=== PATIENT | female | born 1960 | race African-American/Black ===

== ENCOUNTER 2016-05-22 14:52 | Emergency (ER) | payer MEDICAID, OTHER ==
[~2016-05-22] VITALS: Ht 160 cm; Wt 72.6 kg
[~2016-05-22 14:52] MED LIST: DOCUSATE SODIU100 M2 ORAL; LISINOPRIL-HCT1 EAC2 ORAL; NITROFURANTOIN100 M2 ORAL; NORCO 5-325 TA1 EACH ORAL; OMEPRAZOLE40 M1 ORAL; RANITIDINE HCL150 MG ORAL; ZOFRAN4 MG ORAL
[2016-05-22 15:17] VITALS: BP 108/73
--- NOTE | 2016-05-22 15:26 | Emergency Room Report ---
History of Present Illness General Chief Complaint: Abdominal Pain Source: Patient Present Illness HPI Patient presents with complaints of diffuse abdominal pain Essentially points to bilateral lower abdominal region Reports that ongoing for the past several days Reports of pain last week with sharp today is more dull Denies any fevers or chills she did have a vomiting episode earlier today also reports one episode of diarrhea Patient denies any recent travel denies any trauma Allergies: Coded Allergies: NO KNOWN ALLERGIES (Unverified Allergy, Unknown, 08/02/14) Patient History Past Medical History: see triage record Pertinent Family History: none Reviewed Nursing Documentation: PMH: Agreed, PSxH: Agreed Nursing Documentation-PM Past Medical History: No History, Except For Hx Hypertension: Yes Hx Gastrointestinal Problems: No - s/p CANDY in 2000 Review of Systems All Other Systems: negative except mentioned in HPI Physical Exam Vital Signs Date Time Temp Pulse Resp B/P Pulse Ox O2 Delivery O2 Flow Rate FiO2 05/22/16 15:10 98.1 91 14 108/73 97 Sp02 EP Interpretation: reviewed, normal General Appearance: well appearing, no apparent distress Head: normocephalic, atraumatic Eyes: bilateral eye EOMI, bilateral eye PERRL ENT: hearing grossly normal, normal pharynx, TMs + canals normal, uvula midline Neck: full range of motion, supple, no meningismus, no bony tend Respiratory: lungs clear, normal breath sounds, no rhonchi, no respiratory distress, no retraction, no accessory muscle use Cardiovascular #1: normal peripheral pulses, regular rate, rhythm, no edema, no gallop, no JVD, no murmur Gastrointestinal: normal bowel sounds, soft, no mass, no organomegaly, non- distended, no guarding, no hernia, no pulsatile mass, no rebound, tenderness - Subjectively however no obvious reproducible pain Genitourinary: no CVA tenderness Musculoskeletal: normal inspection Neurologic: oriented x3, responsive, manager intermediate III-XII nml as tested, motor strength/ tone normal, sensory intact Psychiatric: mood/affect normal Skin: normal color, no rash, warm/dry, palpation normal Lymphatic: normal inspection, no adenopathy Medical Decision Making Diagnostic Impression: Primary Impression: Abdominal pain ER Course With the history exam and presentation, multiple differentials considered, including but not limited to appendicitis, gastritis, cholecystitis, diverticulitis Given the patient's discomfort CT imaging was obtained No obvious acute pathology, questionable colitis Patient's blood work is appropriate patient hasn't significantly better throughout her stay at this time stable for further outpatient followup Labs Test 05/22/16 15:10 White Blood Count 8.0 K/UL (4.8-10.8) Red Blood Count 3.28 M/UL (4.20-5.40) Hemoglobin 12.4 G/DL (12.0-16.0) Hematocrit 34.3 % (37.0-47.0) Mean Corpuscular Volume 105 FL (80-99) Mean Corpuscular Hemoglobin 37.9 PG (27.0-31.0) Mean Corpuscular Hemoglobin Concent 36.1 G/DL (32.0-36.0) Red Cell Distribution Width 12.8 % (11.6-14.8) Platelet Count 256 K/UL (150-450) Mean Platelet Volume 7.4 FL (6.5-10.1) Neutrophils (%) (Auto) 66.9 % (45.0-75.0) Lymphocytes (%) (Auto) 24.1 % (20.0-45.0) Monocytes (%) (Auto) 6.3 % (1.0-10.0) Eosinophils (%) (Auto) 1.0 % (0.0-3.0) Basophils (%) (Auto) 1.7 % (0.0-2.0) Urine Color Pale yellow Urine Appearance Clear Urine pH 6 (4.5-8.0) Urine Specific [place] 1.015 (1.005-1.035) Urine Protein Negative (NEGATIVE) Urine Glucose (UA) Negative (NEGATIVE) Urine Ketones Negative (NEGATIVE) Urine Occult Blood 1+ (NEGATIVE) Urine Nitrite Negative (NEGATIVE) Urine Bilirubin Negative (NEGATIVE) Urine Urobilinogen Normal MG/DL (0.0-1.0) Urine Leukocyte Esterase Negative (NEGATIVE) Urine RBC 2-4 /HPF (0 - 2) Urine WBC 0-2 /HPF (0 - 2) Urine Squamous Epithelial Cells Few /LPF (NONE/OCC) Urine Amorphous Sediment Few /LPF (NONE) Urine Bacteria Few /HPF (NONE) Sodium Level 140 mEQ/L (135-145) Potassium Level 3.4 mEQ/L (3.4-4.9) Chloride Level 98 mEQ/L (98-107) Carbon Dioxide Level 24 mEQ/L (20-30) Anion Gap 18 (5-15) Blood Urea Nitrogen 25 mg/dL (7-23) Creatinine 1.1 mg/dL (0.5-0.9) Estimat Glomerular Filtration Rate > 60 mL/min (>60) Glucose Level 115 mg/dL (74-106) Calcium Level 9.5 mg/dL (8.6-10.2) Total Bilirubin 0.3 mg/dL (0.0-1.2) Aspartate Amino Transf (AST/SGOT) 28 U/L (5-40) Alanine Aminotransferase (ALT/SGPT) 21 U/L (3-33) Alkaline Phosphatase 87 U/L (35-104) Total Protein 6.8 g/dL (6.6-8.7) Albumin 4.3 g/dL (3.5-5.2) Globulin 2.5 g/dL Albumin/Globulin Ratio 1.7 (1.0-2.7) Lipase 33 U/L (< 60) CT/MRI/US Diagnostic Results CT/MRI/US Diagnostic Results : Impression CT abdomen pelvis: Questionable colitis no obvious abscess or obstruction Last Vital Signs Date Time Temp Pulse Resp B/P Pulse Ox O2 Delivery O2 Flow Rate FiO2 05/22/16 15:10 98.1 91 14 108/73 97 Status: improved Disposition: HOME, SELF-CARE Condition: Improved Scripts Acetaminophen (Tylenol) 325 Mg Tablet 650 MG ORAL Q6H Y for Prn Pain/Headache/Temp > 101, #20 TAB 0 Refills Prov: KARISHMA GARBER D.O. 05/22/16 Ciprofloxacin Hcl* (CIPROFLOXACIN HCL*) 500 Mg Tablet 500 MG ORAL Q12H, #10 TAB 0 Refills Prov: KARISHMA GARBER D.O. 05/22/16 Additional Instructions: Patient is provided with the discharge instructions notified to follow up with primary doctor in the next 2-3 days otherwise return to the er with any worsening symptoms. Please note that this report is being documented using [email or web address] technology. This can lead to erroneous entry secondary to incorrect interpretation by the dictating instrument. KARISHMA GARBER D.O. May 22, 2016 15:26
[2016-05-22] MEDS ORDERED: Norco 10mg/325mg tab ORAL ONE (15:30)
[2016-05-22] MEDS ORDERED: Ketorolac 60mg Inj IM ONE (15:30)
[2016-05-22 16:06] LABS: APPEARANCE,URINE CLEAR; KETONES,URINE NEGATIVE (NEGATIVE); LEUKOCYTE ESTERASE ,URINE NEGATIVE (NEGATIVE); NITRITE,URINE NEGATIVE (NEGATIVE); PH,URINE 6 (4.5-8.0); PROTEIN,URINE NEGATIVE (NEGATIVE); UROBILINOGEN,URINE NORMAL MG/DL (0.0-1.0)
[2016-05-22 16:15] LABS: BASOPHILS % (AUTO) 1.7 % (0.0-2.0); LYMPHOCYTES % (AUTO) 24.1 % (20.0-45.0); MEAN CORPUSCULAR HEMOGLOBIN 37.9 PG (27.0-31.0); MEAN CORPUSCULAR HGB CONC 36.1 G/DL (32.0-36.0); MEAN CORPUSCULAR VOLUME 105 FL (80-99); MEAN PLATELET VOLUME 7.4 FL (6.5-10.1); MONOCYTES % (AUTO) 6.3 % (1.0-10.0); NEUTROPHILS % (AUTO) 66.9 % (45.0-75.0); PLATELET COUNT 256 K/UL (150-450); RED BLOOD COUNT 3.28 M/UL (4.20-5.40); RED CELL DISTRIBUTION WIDTH 12.8 % (11.6-14.8)
[2016-05-22 16:23] LABS: AMORPHOUS SEDIMENT,UR FEW /LPF; BACTERIA,URINE FEW /HPF; SQUAMOUS EPITHELIAL CELL,UR FEW /LPF (NONE/OCC); WBC,URINE 0-2 /HPF (0 - 2)
[2016-05-22 16:36] LABS: ALANINE AMINOTRANSFERASE 21 U/L (3-33); ALBUMIN/GLOBULIN RATIO 1.7 (1.0-2.7); ANION GAP 18 (5-15); ASPARTATE AMINO TRANSFERASE 28 U/L (5-40); CALCIUM 9.5 mg/dL (8.6-10.2); CARBON DIOXIDE 24 mEQ/L (20-30); CHLORIDE 98 mEQ/L (98-107); CREATININE 1.1 mg/dL (0.5-0.9); GLOMERULAR FILTRATION RATE > 60 mL/min (>60); HEMOLYSIS 6; LIPASE 33 U/L (< 60); POTASSIUM 3.4 mEQ/L (3.4-4.9); SODIUM 140 mEQ/L (135-145); TOTAL PROTEIN 6.8 g/dL (6.6-8.7)
--- NOTE | 2016-05-22 17:15 | Diagnostic Imaging Report ---
Indication: Diffuse abdominal pain Technique: Spiral acquisitions obtained through the abdomen and pelvis. No oral contrast utilized, per emergency room physician request No IV contrast utilized, per referring physician request.. Multiplanar reconstructions were generated. Total dose length product 817 mGycm. CTDIvol(s) 15 mGy Comparison: 03/08/2015 Findings: Lack of oral contrast early limits assessment of the GI tract. The appendix is normal. There is distal colonic diverticulosis. No evidence of diverticulitis. Small bowel loops are mildly prominent but not frankly dilated. No free or loculated intraperitoneal air or fluid. There is a small fat-containing umbilical hernia. The distal esophagus, stomach, duodenum are unremarkable. Lack of IV contrast limits assessment of solid organs. The gallbladder is nondistended. Bile ducts are unremarkable. The liver, pancreas are unremarkable. The spleen demonstrates a central low-attenuation lesion which may just represent sinus fat or small cyst. The adrenals, kidneys are unremarkable. No retroperitoneal or mesenteric mass or adenopathy. No pelvic mass or adenopathy. Uterus is retroverted. Included lung bases demonstrate some posterior dependent atelectatic changes. The bones are unremarkable. Impression: Mild nonspecific prominence of small bowel loops, but doubtful significance but mild enteritis changes not completely excludable No acute process otherwise Diverticulosis without evidence of diverticulitis Small splenic cyst versus prominent central sinus fat. Incidental findings as noted, including posterior dependent atelectatic changes, small fat-containing available hernia The CT scanner at [facility] is accredited by the [employer] and the scans are performed using protocols designed to limit radiation exposure to as low as reasonably achievable to attain images of sufficient resolution adequate for diagnostic evaluation.
[2016-05-22] MEDS ORDERED: CIPROFLOXACIN500 M2 ORAL (17:47)
[2016-05-22 17:48] VITALS: BP 110/66
[2016-05-22] MEDS ORDERED: TYLENOL325 MG ORAL (17:49)
[2016-05-22 18:16] VITALS: BP 110/66
== END 2016-05-22 18:16 | disposition home or self-care (01) ==
LOC: EMR 15:50
DX: R10.9 Unspecified abdominal pain (principal); I10 Essential (primary) hypertension
CPT/HCPCS: 36415; 74176; 80053; 81003; 83690; 85025; 96372; 99284

== ENCOUNTER 2016-05-25 15:42 | Emergency (ER) | payer MEDICAID ==
[~2016-05-25] VITALS: Ht 160 cm; Wt 72.6 kg
[~2016-05-25 15:42] MED LIST changes: +CIPROFLOXACIN500 M2 ORAL; +TYLENOL325 MG ORAL
[2016-05-25 15:56] VITALS: BP 115/80
[2016-05-25] MEDS ORDERED: BENTYL10 MG ORAL (16:11)
[2016-05-25] MEDS ORDERED: ACETAMINOPHEN-1 EAC1 ORAL (16:11)
[2016-05-25 16:16] VITALS: BP 115/80
--- NOTE | 2016-05-25 17:54 | Emergency Room Report ---
History of Present Illness General Chief Complaint: Dizziness Source: Patient Present Illness HPI 56-year-old female presents to ED for evaluation. Patient states that she checked her blood pressure this morning and it was low. ED was 90 sore 50s. Patient felt fine at the time. Patient was advised by PMD to come to ER for evaluation. BP in triage is normal. Denies any dizziness or weakness. Denies chest pain or shortness of breath. Is not taking any blood pressure medications. Patient is also complaining of abdominal pain. Cramping. 08/28, nonradiating. Patient was seen 3 days ago in ER. Was told she had colitis and was discharged on antibiotics. States she is taking advice as directed. Denies any diarrhea at this time. Denies vomiting. No other aggravating or relieving factors. Denies any other associated symptoms Allergies: Coded Allergies: NO KNOWN ALLERGIES (Unverified Allergy, Unknown, 08/02/14) Patient History Past Medical History: HTN Past Surgical History: none Pertinent Family History: none Social History: Denies: alcohol use, drug use, smoking Now: No Immunizations: UTD Reviewed Nursing Documentation: PMH: Agreed, PSxH: Agreed Nursing Documentation-PMH Past Medical History: No History, Except For Hx Hypertension: Yes Hx Gastrointestinal Problems: No - s/p CANDY in 2000 Review of Systems All Other Systems: negative except mentioned in HPI Physical Exam Vital Signs Date Time Temp Pulse Resp B/P Pulse Ox O2 Delivery O2 Flow Rate FiO2 05/25/16 15:52 98.1 80 15 115/80 98 Sp02 EP Interpretation: reviewed, normal General Appearance: no apparent distress, alert, GCS 15, non-toxic Head: normocephalic Eyes: bilateral eye PERRL, bilateral eye normal inspection ENT: normal ENT inspection Neck: full range of motion, supple/symm/no masses Respiratory: chest non-tender, lungs clear, normal breath sounds, speaking full sentences Cardiovascular #1: regular rate, rhythm, no edema Cardiovascular #2: 2+ carotid (R), 2+ carotid (L), 2+ radial (R), 2+ radial (L) , 2+ dorsalis pedis (R), 2+ dorsalis pedis (L) Gastrointestinal: normal bowel sounds, non tender, soft, non-distended, no guarding, no rebound Rectal: deferred Genitourinary: normal inspection, no CVA tenderness Musculoskeletal: back normal, gait/station normal, normal range of motion, non- tender Neurologic: alert, oriented x3, responsive, motor strength/tone normal, sensory intact, speech normal Psychiatric: judgement/insight normal, memory normal, mood/affect normal, no suicidal/homicidal ideation Reflexes: 3+ bicep (R), 3+ bicep (L), 3+ tricep (R), 3+ tricep (L), 3+ knee (R) , 3+ knee (L) Skin: normal color, no rash, warm/dry, well hydrated Lymphatic: no adenopathy Medical Decision Making Diagnostic Impression: Primary Impression: Colitis ER Course 56-year-old female presents to ED for evaluation of low blood pressure. Abdominal pain. Differential-dehydration, medication overdose, arrhythmia Patient placed on stretcher. After initial history physical exam reveals a middle-aged female in no acute distress. Initial BP in triage is 115/80. Remains steady during ED visit. Abdomen is soft. Remainder physical exam is unremarkable Given normal BP at this time I see no reason for further workup. Encourage patient to check blood pressure over a few days before she comes to ER for check up. Also to come back only if she feels symptomatic i.e. dizziness or weakness On last visit patient had labs which are negative and CT which showed colitis. Patient was discharged on Cipro. I see no reason to repeat workup at this time. I will add Bentyl and medication for pain. Encouraged to complete antibiotic prescription Diagnoses-colitis Stable and discharged to home with prescription for Bentyl and Tylenol #3. Continue Cipro as directed. Followup with PMD. Return to ED if symptoms recur or worsen Last Vital Signs Date Time Temp Pulse Resp B/P Pulse Ox O2 Delivery O2 Flow Rate FiO2 05/25/16 16:16 98.1 15 115/80 98 05/25/16 15:56 87 Status: improved Disposition: HOME, SELF-CARE Condition: Stable Scripts Acetaminophen With Codeine (T#3) (TYLENOL #3 TAB*) Y Tab 1 TAB ORAL Q8H Y for For Pain, #20 TAB Prov: BENIGNO HEDRICK M.D. 05/25/16 Dicyclomine Hcl* (BENTYL*) 10 Mg Capsule 10 MG ORAL FOUR TIMES A DAY, #20 CAP Prov: BENIGNO HEDRICK M.D. 05/25/16 Referrals: [facility],REFERRING (PCP) Patient Instructions: Colitis BENIGNO HEDRICK M.D. May 25, 2016 17:54
== END 2016-05-25 16:17 | disposition home or self-care (01) ==
LOC: EMR 16:16
DX: K52.9 Noninfective gastroenteritis and colitis, unspecified (principal); I10 Essential (primary) hypertension
CPT/HCPCS: 99284

== ENCOUNTER 2016-07-08 15:35 | Emergency (ER) | payer MEDICAID, OTHER ==
[~2016-07-08] VITALS: Ht 160 cm; Wt 74.8 kg
[~2016-07-08 15:35] MED LIST changes: +ACETAMINOPHEN-1 EAC1 ORAL; +BENTYL10 MG ORAL
[2016-07-08] MEDS ORDERED: Norco 5mg/325mg tab ORAL ONE (16:00)
[2016-07-08] MEDS ORDERED: TRAMADOL HCL50 MG ORAL (16:09)
[2016-07-08] MEDS ORDERED: BACTRIM DS TAB1 EAC1 ORAL (16:09)
[2016-07-08] MEDS ORDERED: CEPHALEXIN500 MG ORAL (16:09)
[2016-07-08] MEDS ORDERED: HYDROCORTISON28.4 G5 TOPIC (16:09)
[2016-07-08] MEDS ORDERED: IBUPROFEN600 MG ORAL (16:09)
[2016-07-08] MEDS ORDERED: TYLENOL EXTRA500 MG ORAL (16:28)
[2016-07-08 16:38] VITALS: BP 105/71
--- NOTE | 2016-07-08 19:56 | Emergency Room Report ---
History of Present Illness General Chief Complaint: Animal Bite Source: Patient, Medical Record Present Illness HPI The patient is a 56-year-old female presenting for possible insect bite. The patient states that she noticed a red markings on the left lower leg one week prior and then noticed subsequent red ortiz in the days following. She states pain has been increasing and is now an 8/10 dull ache to the left lower leg. Pain does not radiate. She states that the swelling and redness from the area have increased as well. Pain worse with touch. She denies seeing any insects that may have caused this she denies any injury. She denies any other symptoms including nausea, vomiting, fever, chills, numbness or tingling Allergies: Coded Allergies: NO KNOWN ALLERGIES (Unverified Allergy, Unknown, 08/02/14) Patient History Past Medical History: see triage record Pertinent Family History: none Last Menstrual Period: 15 years ago : 10 Para: 10 Reviewed Nursing Documentation: PMH: Agreed, PSxH: Agreed Nursing Documentation-PMH Past Medical History: No History, Except For Hx Hypertension: Yes Hx Gastrointestinal Problems: No - s/p CANDY in 2000 Review of Systems All Other Systems: negative except mentioned in HPI Physical Exam Vital Signs Date Time Temp Pulse Resp B/P Pulse Ox O2 Delivery O2 Flow Rate FiO2 07/08/16 15:44 97.5 82 17 115/78 98 Room Air Sp02 EP Interpretation: reviewed, normal General Appearance: no apparent distress, alert, GCS 15, non-toxic Head: normocephalic, atraumatic Eyes: bilateral eye PERRL, bilateral eye normal inspection ENT: hearing grossly normal, normal pharynx, no angioedema, normal voice Neck: full range of motion, supple/symm/no masses Respiratory: chest non-tender, lungs clear, normal breath sounds, speaking full sentences Musculoskeletal: normal range of motion, swelling - minimal, tender - TTP over the L lateral leg distal to knee Neurologic: alert, oriented x3, responsive, motor strength/tone normal, sensory intact, speech normal Psychiatric: judgement/insight normal, memory normal, mood/affect normal, no suicidal/homicidal ideation Skin: warm/dry, normal turgor, other - L lateral lower leg: there are 4 circular erythematous lesions with central marking. TTP. Surrounding erythema. Lymphatic: no adenopathy Medical Decision Making PA Attestation Dr. Roberto is my supervising physician. Patient management was discussed with my supervising physician Diagnostic Impression: Primary Impression: Cellulitis Qualified Codes: L03.116 - Cellulitis of left lower limb Additional Impression: Insect bite Qualified Codes: W57.XXXA - Bitten or stung by nonvenomous insect and other nonvenomous arthropods, initial encounter ER Course The patient is a 56-year-old female presenting for possible insect bite. Ddx considered include but not limited to insect bite, contact dermatitis, eczema, cellulitis PE: vitals WNL. NAD L lateral lower leg: there are 4 circular erythematous lesions with central marking. TTP. Surrounding erythema. no swelling or midcalf tenderness. Normal gait The patient will be discharged home with a prescription for Keflex, Bactrim, topical steroids. ER precautions given Last Vital Signs Date Time Temp Pulse Resp B/P Pulse Ox O2 Delivery O2 Flow Rate FiO2 07/08/16 16:38 97.5 82 16 105/71 99 Room Air Status: improved Disposition: HOME, SELF-CARE Condition: Improved Scripts Acetaminophen* (TYLENOL EXTRA STRENGTH*) 500 Mg Tablet 500 MG ORAL Q8H Y for Prn Headache/Temp > 101, #30 TAB 0 Refills Prov: TERZIAN,ROLAND P.A. 07/08/16 Hydrocortisone 1% cream (Hydrocortisone 1% cream) Y Cr 28.4 GM TOPIC Q12HR, #28 GM Prov: TERZIAN,ROLAND P.A. 07/08/16 Trimethoprim/Sulfamethoxazole 160/800* (BACTRIM DS TABLET*) 1 Each Tablet 1 TAB ORAL TWICE A DAY, #14 TAB Prov: TERZIAN,ROLAND P.A. 07/08/16 Cephalexin* (KEFLEX*) 500 Mg Capsule 500 MG ORAL EVERY 6 HOURS, #28 CAP Prov: TERZIAN,ROLAND P.A. 07/08/16 Tramadol Hcl* (ULTRAM*) 50 Mg Tablet 50 MG ORAL Q6H Y for For Pain, #10 TAB 0 Refills Prov: TERZIAN,ROLAND P.A. 07/08/16 Referrals: [facility],REFERRING (PCP) Patient Instructions: Cellulitis, Insect Bite Additional Instructions: I discussed my findings with the patient. All questions and concerns have been answered. Treatment and medication compliance have been addressed. I advised the patient that they need to follow up with PMD in 3-5 days. Return to ED if symptoms worsen, new symptoms arise, or if needed for any reason. Patient verbalized understanding of discharge instructions. ROLAND NESBITT July 08, 2016 19:56
== END 2016-07-08 16:44 | disposition home or self-care (01) ==
LOC: EMR 15:51
DX: L03.116 Cellulitis of left lower limb (principal); S80.862A Insect bite (nonvenomous), left lower leg, initial encounter; W57.XXXA Bitten or stung by nonvenomous insect and other nonvenomous arthropods, initial encounter; I10 Essential (primary) hypertension; Y93.9 Activity, unspecified; Y92.9 Unspecified place or not applicable
CPT/HCPCS: 99284

== ENCOUNTER 2017-02-21 12:19 | Emergency (ER) | payer OTHER ==
[~2017-02-21] VITALS: Ht 160 cm; Wt 77.1 kg
[~2017-02-21 12:19] MED LIST changes: +BACTRIM DS TAB1 EAC1 ORAL; +CEPHALEXIN500 MG ORAL; +HYDROCORTISON28.4 G5 TOPIC; +IBUPROFEN600 MG ORAL; +TRAMADOL HCL50 MG ORAL; +TYLENOL EXTRA500 MG ORAL
[2017-02-21] MEDS ORDERED: NKM (13:20)
[2017-02-21] MEDS ORDERED: ACETAMINOPHEN-1 EAC1 ORAL (13:45)
[2017-02-21 14:20] VITALS: BP 129/78
--- NOTE | 2017-02-21 23:20 | Emergency Room Report ---
History of Present Illness General Chief Complaint: Abdominal Pain Source: Patient Present Illness [facility] The patient is a 56-year-old female presenting for left lower torso pain for 3 days. She states that she woke with the pain. Worse with movement. 8/10 dull ache. She denies other symptoms including N, V, F, chills, diarrhea, constipation, cough Allergies: Coded Allergies: NO KNOWN ALLERGIES (Unverified Allergy, Unknown, 08/02/14) Patient History Past Medical History: see triage record Pertinent Family History: none Reviewed Nursing Documentation: PMH: Agreed, PSxH: Agreed Nursing Documentation-PMH Past Medical History: No History, Except For Hx Hypertension: Yes Hx Gastrointestinal Problems: No - s/p CANDY in 2000 Review of Systems All Other Systems: negative except mentioned in HPI Physical Exam Vital Signs Date Time Temp Pulse Resp B/P (MAP) Pulse Ox O2 Delivery O2 Flow Rate FiO2 02/21/17 13:16 97.7 79 16 129/78 95 Room Air Sp02 EP Interpretation: reviewed, normal General Appearance: no apparent distress, alert, GCS 15, non-toxic Head: normocephalic, atraumatic Eyes: bilateral eye normal inspection, bilateral eye PERRL ENT: hearing grossly normal, normal pharynx, no angioedema, normal voice Neck: full range of motion, supple/symm/no masses Respiratory: chest non-tender, lungs clear, normal breath sounds, speaking full sentences Cardiovascular #1: regular rate, rhythm, no edema Gastrointestinal: normal bowel sounds, non tender, soft, non-distended, no guarding, no rebound Musculoskeletal: tender - L lower intercostal muscles Neurologic: alert, oriented x3, responsive, motor strength/tone normal, sensory intact, speech normal Psychiatric: judgement/insight normal, memory normal, mood/affect normal, no suicidal/homicidal ideation Skin: normal color, no rash, warm/dry, well hydrated Medical Decision Making PA Attestation Dr. Cook is my supervising physician. Patient management was discussed with my supervising physician Diagnostic Impression: Primary Impression: Muscle strain ER Course The patient is a 56-year-old female presenting for left lower torso pain for 3 days Ddx considered include but not limited to gastritis, diverticulitis, sprain/ strain, fracture, contusion, among others PE; NAD There is tenderness to palpation along the left lower intercostal muscles. No tenderness to palpation over abdomen for No CVA tenderness The patient be discharged with pain medication. ER precautions are given Last Vital Signs Date Time Temp Pulse Resp B/P (MAP) Pulse Ox O2 Delivery O2 Flow Rate FiO2 02/21/17 14:20 97.7 16 129/78 95 Room Air 02/21/17 13:16 79 Status: improved Disposition: HOME, SELF-CARE Condition: Improved Scripts Acetaminophen With Codeine (T#3) (TYLENOL #3 TAB*) Y Tab 1 TAB ORAL Q6HR Y for For Pain, #12 TAB Prov: ROLAND NESBITT 02/21/17 Referrals: [facility],REFERRING (PCP) Patient Instructions: Abdominal Pain, Adult, Muscle Strain Additional Instructions: I discussed my findings with the patient. All questions and concerns have been answered. Treatment and medication compliance have been addressed. I advised the patient that they need to follow up with PMD in 3-5 days. Return to ED if symptoms worsen, new symptoms arise, or if needed for any reason. Patient verbalized understanding of discharge instructions. ROLAND NESBITT Feb 21, 2017 23:20
== END 2017-02-21 14:30 | disposition home or self-care (01) ==
LOC: EMR 14:25
DX: S39.011A Strain of muscle, fascia and tendon of abdomen, initial encounter (principal); I10 Essential (primary) hypertension; X58.XXXA Exposure to other specified factors, initial encounter; Y92.9 Unspecified place or not applicable
CPT/HCPCS: 99283

== ENCOUNTER 2017-05-04 10:33 | Emergency (ER) | payer OTHER ==
[~2017-05-04] VITALS: Ht 160 cm; Wt 75.7 kg
[~2017-05-04 10:33] MED LIST changes: +NKM
[2017-05-04] MEDS ORDERED: Tylenol #3 tab (300mg/30mg) ORAL ONE (11:00)
[2017-05-04 11:27] LABS: BASOPHILS % (AUTO) 1.3 % (0.0-2.0); EOSINOPHILS % (AUTO) 0.6 % (0.0-3.0); HEMATOCRIT 40.1 % (37.0-47.0); HEMOGLOBIN 13.9 G/DL (12.0-16.0); LYMPHOCYTES % (AUTO) 20.1 % (20.0-45.0); MEAN CORPUSCULAR VOLUME 103 FL (80-99); MONOCYTES % (AUTO) 6.1 % (1.0-10.0); PLATELET COUNT 265 K/UL (150-450); RED CELL DISTRIBUTION WIDTH 12.7 % (11.6-14.8); WHITE BLOOD COUNT 8.6 K/UL (4.8-10.8)
--- NOTE | 2017-05-04 11:29 | Emergency Room Report ---
History of Present Illness General Chief Complaint: Pain Source: Patient Present Illness HPI 57-year-old female presents with 2-3 days of left jaw swelling and pain States she has a history of tongue cancer has been treated with surgery last surgery was in February She saw her "cancer doctor" recently who prescribed oral penicillin for infection in the left side of her jaw She does not know how big the infection is, she thinks it may be an abscess She denies associated fever or chills Denies difficulty swallowing water medication or food. Allergies: Coded Allergies: NO KNOWN ALLERGIES (Unverified Allergy, Unknown, 08/02/14) Patient History Past Medical History: other - tongue cancer Past Surgical History: none Pertinent Family History: none Social History: Denies: smoking, alcohol use, drug use Now: No Immunizations: UTD Reviewed Nursing Documentation: PMH: Agreed, PSxH: Agreed Nursing Documentation-PMH Past Medical History: No History, Except For Hx Hypertension: Yes Hx Gastrointestinal Problems: No - s/p CANDY in 2000 Review of Systems All Other Systems: negative except mentioned in HPI Physical Exam Vital Signs Date Time Temp Pulse Resp B/P (MAP) Pulse Ox O2 Delivery O2 Flow Rate FiO2 05/04/17 10:35 98.4 72 16 144/90 98 Room Air 98.4 Sp02 EP Interpretation: reviewed, normal General Appearance: normal inspection, well appearing, no apparent distress, alert, GCS 15, non-toxic Head: normocephalic, atraumatic Eyes: bilateral eye PERRL, bilateral eye EOMI ENT: normal ENT inspection, hearing grossly normal, normal pharynx, no angioedema, normal voice, TMs + canals normal, uvula midline, moist mucus membranes, other - Left jaw, mild swelling observed with erythema to face and under left eye Neck: normal inspection, full range of motion, supple, thyroid normal, no meningismus, no bony tend Respiratory: normal inspection, lungs clear, normal breath sounds, no rhonchi, no respiratory distress, no retraction, no accessory muscle use, no wheezing, speaking full sentences Cardiovascular #1: regular rate, rhythm, no edema, no JVD, normal capillary refill Gastrointestinal: normal inspection, normal bowel sounds, non tender, soft, no mass, no peritonitis, non-distended, no guarding, no hernia, no pulsatile mass Genitourinary: no CVA tenderness Musculoskeletal: normal inspection, back normal, normal range of motion, no calf tenderness, pelvis stable, Xiao's Sign negative Neurologic: normal inspection, alert, oriented x3, responsive, insulation cupola operator III-XII nml as tested, motor strength/tone normal, cerebellar normal, normal gait, speech normal Psychiatric: normal inspection, judgement/insight normal, mood/affect normal, no suicidal/homicidal ideation, no delusions Skin: normal inspection, normal color, no rash Lymphatic: normal inspection, no adenopathy Medical Decision Making Diagnostic Impression: Primary Impression: Facial pain Additional Impression: Periapical abscess ER Course DDx includes soft tissue cellulitis, abscess CT: Indicates periapical abscess of the third mandibular molar Labs: No leukocytosis Patient ambulating in ER, feels better, wants to go home Penicillin was likely an inappropriate dose for periapical abscess We'll give clindamycin Close primary care follow-up and dental follow-up ER course: Patient has remained stable during ED stay. Disposition: Patient is to be discharged to home. Prescriptions given are clindamycin Patient is instructed to follow up with their primary care doctor within 5 days. Strict return precautions discussed with patient such as fever, chills, worsening/severe pain, nausea, vomiting, which may indicate severe illness. Patient verbalizes understanding and agrees with plan. Please note that this Emergency Department Report was dictated using [employer] breaker technology software, occasionally this can lead to erroneous entry secondary to interpretation by the dictation equipment Last Vital Signs Date Time Temp Pulse Resp B/P (MAP) Pulse Ox O2 Delivery O2 Flow Rate FiO2 05/04/17 11:04 98.4 05/04/17 10:35 72 16 144/90 98 Room Air Status: improved Disposition: HOME, SELF-CARE MILADIS MOJICA M.D. May 04, 2017 11:29
[2017-05-04 11:38] LABS: ANION GAP 10 mmol/L (5-15); BLOOD UREA NITROGEN 23 mg/dL (7-18); CALCIUM 8.7 MG/DL (8.5-10.1); CARBON DIOXIDE 29 MMOL/L (21-32); CHLORIDE 104 MMOL/L (98-107); POTASSIUM 3.2 MMOL/L (3.5-5.1); SODIUM 143 MMOL/L (136-145)
[2017-05-04 11:43] LABS: ALANINE AMINOTRANSFERASE 24 U/L (12-78); ALBUMIN 3.9 G/DL (3.4-5.0); ALBUMIN/GLOBULIN RATIO 1.1 (1.0-2.7); ALKALINE PHOSPHATASE 107 U/L (46-116); ASPARTATE AMINO TRANSFERASE 20 U/L (15-37); BILIRUBIN,TOTAL 0.8 MG/DL (0.2-1.0)
[2017-05-04 12:26] VITALS: BP 124/75
--- NOTE | 2017-05-04 12:52 | Diagnostic Imaging Report ---
Indication: Left jaw swelling and pain for 2 to 3 days Technique: IV administration nonionic contrast. Spiral acquisitions obtained through the Multiplanar reconstructions were generated. Total dose length product 707.12 mGycm. CTDIvol(s) 28.19 mGy. Radiation dose was minimized using automated exposure control Comparison: none Findings: The root of the left third mandibular molar is surrounded by lucency, with a defect of the overlying superficial mandibular cortex noted and apparent elevation of the overlying periosteum. There is a small area of lucency measuring approximately 13 x 6 mm in the buccal musculature anterior to the mandibular cortical defect and immediately superficial to the mandibular cortical surface. Dental caries of the crown noted There is also lucency about the apex of the second mandibular molar, possibly with some discontinuity of the adjacent medial cortical surface. There is evidence of prior extractions of the first left mandibular molar and left first mandibular premolar. Equivocal apical lucency is stranding surrounding the right second mandibular molar. Lucency is also seen surrounding the root of the left second maxillary premolar. There is markedly abnormal appearance of the second maxillary premolar, probably due to destruction by dental caries There is evidence of multiple dental caries elsewhere. There is questionable slight asymmetry of the distal tongue, which may relate to stated clinical history of prior lung surgery for cancer. The oropharynx and nasopharynx appear normal, symmetrical, without evidence of tonsillar abnormality. There is no evidence of adenopathy. The salivary glands appear unremarkable. There is right maxillary sinus mucosal thickening. The remaining sinuses are clear. The orbits are unremarkable. There is no significant superficial facial soft tissue swelling. The visualized intracranial contents are unremarkable. The parapharyngeal spaces are clear, symmetrical. Impression: There is evidence of an apical root abscess surrounding the root of the third mandibular molar, with evidence of disruption of the overlying superficial mandibular cortex and elevation of the adjacent mandibular periosteum. A lucency within the adjacent local musculature could indicate a tiny abscess. Other areas of suspected dental and periodontal disease as detailed above The upper aerodigestive tract is unremarkable Questionable slight asymmetry of the distal tongue, may be evidence of prior tongue surgery described in the technologist notes Minimal right maxillary sinus mucosal disease The CT scanner at [facility] is accredited by the [employer] and the scans are performed using protocols designed to limit radiation exposure to as low as reasonably achievable to attain images of sufficient resolution adequate for diagnostic evaluation.
[2017-05-04] MEDS ORDERED: CLINDAMYCIN HC300 MG ORAL (13:14)
[2017-05-04] MEDS ORDERED: ACETAMINOPHEN-1 EAC1 ORAL (13:14)
[2017-05-04 13:21] VITALS: BP 124/75
== END 2017-05-04 13:22 | disposition home or self-care (01) ==
LOC: EMR 11:31
DX: K04.7 Periapical abscess without sinus (principal); I10 Essential (primary) hypertension
CPT/HCPCS: 36415; 70488; 80053; 85025; 99284; Q9967

== ENCOUNTER 2017-08-15 15:09 | Emergency (ER) | payer MEDICAID, OTHER ==
[~2017-08-15] VITALS: Ht 160 cm; Wt 74.8 kg
[~2017-08-15 15:09] MED LIST changes: +CLINDAMYCIN HC300 MG ORAL
[2017-08-15 15:20] VITALS: BP 133/88
[2017-08-15] MEDS ORDERED: Dicyclomine HCl 10mg/5ml oral soln ORAL ONE (15:45)
[2017-08-15 16:22] LABS: BASOPHILS % (AUTO) 2.2 % (0.0-2.0); EOSINOPHILS % (AUTO) 3.9 % (0.0-3.0); HEMATOCRIT 39.1 % (37.0-47.0); HEMOGLOBIN 13.3 G/DL (12.0-16.0); LYMPHOCYTES % (AUTO) 26.8 % (20.0-45.0); MEAN CORPUSCULAR VOLUME 103 FL (80-99); MONOCYTES % (AUTO) 7.7 % (1.0-10.0); NEUTROPHILS % (AUTO) 59.5 % (45.0-75.0); PLATELET COUNT 239 K/UL (150-450); RED BLOOD COUNT 3.81 M/UL (4.20-5.40); RED CELL DISTRIBUTION WIDTH 12.7 % (11.6-14.8); WHITE BLOOD COUNT 5.8 K/UL (4.8-10.8)
--- NOTE | 2017-08-15 16:26 | Emergency Room Report ---
History of Present Illness General Chief Complaint: Abdominal Pain Source: Patient Present Illness HPI Patient is a 57-year-old female who presented after increased abdominal discomfort. The patient ports having lower abdominal cramping. She reports having nausea and vomiting. The patient reports having prior hysterectomy. Patient denies any fever. She ports having some increased right eye itching and without discharge. Allergies: Coded Allergies: NO KNOWN ALLERGIES (Unverified Allergy, Unknown, 08/02/14) Patient History Last Menstrual Period: hyst Now: No Reviewed Nursing Documentation: PMH: Agreed; PSxH: Agreed Nursing Documentation-PMH Past Medical History: No History, Except For Hx Hypertension: Yes Hx Cancer: Yes - tongue Hx Gastrointestinal Problems: No - hysterectomy Review of Systems All Other Systems: negative except mentioned in HPI Physical Exam Vital Signs Date Time Temp Pulse Resp B/P (MAP) Pulse Ox O2 Delivery O2 Flow Rate FiO2 08/15/17 15:20 98.6 75 18 133/88 98 Room Air 98.6 Sp02 EP Interpretation: reviewed, normal General Appearance: normal inspection, well appearing, no apparent distress, alert, GCS 15 Head: atraumatic ENT: normal ENT inspection, hearing grossly normal, normal voice Neck: normal inspection, full range of motion, supple, no bony tend Respiratory: normal inspection, lungs clear, normal breath sounds, no respiratory distress, no retraction, no wheezing Cardiovascular #1: regular rate, rhythm, no edema Gastrointestinal: normal inspection, normal bowel sounds, non tender, soft, no guarding, no hernia Genitourinary: no CVA tenderness Musculoskeletal: normal inspection, back normal, normal range of motion Neurologic: normal inspection, alert, responsive, speech normal Psychiatric: normal inspection, judgement/insight normal, mood/affect normal Skin: normal inspection, normal color, no rash Medical Decision Making Diagnostic Impression: Primary Impression: Abdominal pain Additional Impression: Colitis ER Course Patient presented for abdominal pain. Differential diagnoses included ischemic bowel, appendicitis, perforated viscus, abdominal aortic aneurysm, inferior myocardial infarction, viral gastroenteritis Because of complexity of patient's case laboratory testing and imaging studies were ordered.The patient was given prescription for antibiotics for presumed colitis. The patient is advised to follow up with primary care doctor in 1-2 days. Patient is advised to return if any worsening condition or if any changes in status that are concerning. This report is dictated with [employer] veterinary attendant software which may occasionally lead to discrepancies related to use of this software. Labs Test 08/15/17 15:48 White Blood Count 5.8 K/UL (4.8-10.8) Red Blood Count 3.81 M/UL (4.20-5.40) Hemoglobin 13.3 G/DL (12.0-16.0) Hematocrit 39.1 % (37.0-47.0) Mean Corpuscular Volume 103 FL (80-99) Mean Corpuscular Hemoglobin 35.1 PG (27.0-31.0) Mean Corpuscular Hemoglobin Concent 34.1 G/DL (32.0-36.0) Red Cell Distribution Width 12.7 % (11.6-14.8) Platelet Count 239 K/UL (150-450) Mean Platelet Volume 7.5 FL (6.5-10.1) Neutrophils (%) (Auto) 59.5 % (45.0-75.0) Lymphocytes (%) (Auto) 26.8 % (20.0-45.0) Monocytes (%) (Auto) 7.7 % (1.0-10.0) Eosinophils (%) (Auto) 3.9 % (0.0-3.0) Basophils (%) (Auto) 2.2 % (0.0-2.0) Urine Color Pale yellow Urine Appearance Clear Urine pH 6.5 (4.5-8.0) Urine Specific [place] 1.015 (1.005-1.035) Urine Protein Negative (NEGATIVE) Urine Glucose (UA) Negative (NEGATIVE) Urine Ketones Negative (NEGATIVE) Urine Occult Blood 2+ (NEGATIVE) Urine Nitrite Negative (NEGATIVE) Urine Bilirubin Negative (NEGATIVE) Urine Urobilinogen Normal MG/DL (0.0-1.0) Urine Leukocyte Esterase 1+ (NEGATIVE) Urine RBC 5-10 /HPF (0 - 2) Urine WBC 2-4 /HPF (0 - 2) Urine Squamous Epithelial Cells Few /LPF (NONE/OCC) Urine Amorphous Sediment Few /LPF (NONE) Urine Bacteria Few /HPF (NONE) Sodium Level 142 MMOL/L (136-145) Potassium Level 3.1 MMOL/L (3.5-5.1) Chloride Level 105 MMOL/L (98-107) Carbon Dioxide Level 28 MMOL/L (21-32) Anion Gap 9 mmol/L (5-15) Blood Urea Nitrogen 23 mg/dL (7-18) Creatinine 1.2 MG/DL (0.55-1.30) Estimat Glomerular Filtration Rate 56.2 mL/min (>60) Glucose Level 121 MG/DL (74-106) Calcium Level 9.1 MG/DL (8.5-10.1) Total Bilirubin 0.4 MG/DL (0.2-1.0) Aspartate Amino Transf (AST/SGOT) 18 U/L (15-37) Alanine Aminotransferase (ALT/SGPT) 28 U/L (12-78) Alkaline Phosphatase 88 U/L (46-116) Troponin I 0.000 ng/mL (0.000-0.056) Total Protein 7.1 G/DL (6.4-8.2) Albumin 3.6 G/DL (3.4-5.0) Globulin 3.5 g/dL Albumin/Globulin Ratio 1.0 (1.0-2.7) Lipase 165 U/L (73-393) Last Vital Signs Date Time Temp Pulse Resp B/P (MAP) Pulse Ox O2 Delivery O2 Flow Rate FiO2 08/15/17 15:20 98.6 75 18 133/88 98 Room Air 98.6 Status: improved Disposition: HOME, SELF-CARE Condition: Stable Scripts Dicyclomine Hcl* (DICYCLOMINE HCL*) 10 Mg Capsule 10 MG PO QID, #30 CAP Prov: Chucky Ponce MD 08/15/17 Ciprofloxacin Hcl* (CIPROFLOXACIN HCL*) 500 Mg Tablet 500 MG ORAL Q12H, #14 TAB 0 Refills Prov: Chucky Ponce MD 08/15/17 Metronidazole* (FLAGYL*) 500 Mg Tablet 500 MG ORAL THREE TIMES A DAY, #21 TAB 0 Refills Prov: Chucky Ponce MD 08/15/17 Chucky Ponce MD Aug 15, 2017 16:26
[2017-08-15] MEDS ORDERED: Gentamicin 0.3% Opth Soln 5ml RIGHT EYE ONE (16:30)
[2017-08-15 16:32] LABS: APPEARANCE,URINE CLEAR; BILIRUBIN, URINE NEGATIVE (NEGATIVE); COLOR,URINE PALE YELLOW; GLUCOSE, URINE (UA) NEGATIVE (NEGATIVE); KETONES,URINE NEGATIVE (NEGATIVE); LEUKOCYTE ESTERASE ,URINE 1+ (NEGATIVE); NITRITE,URINE NEGATIVE (NEGATIVE); PH,URINE 6.5 (4.5-8.0); PROTEIN,URINE NEGATIVE (NEGATIVE); UROBILINOGEN,URINE NORMAL MG/DL (0.0-1.0)
[2017-08-15 16:33] LABS: ANION GAP 9 mmol/L (5-15); BLOOD UREA NITROGEN 23 mg/dL (7-18); CALCIUM 9.1 MG/DL (8.5-10.1); CARBON DIOXIDE 28 MMOL/L (21-32); CHLORIDE 105 MMOL/L (98-107); CREATININE 1.2 MG/DL (0.55-1.30); POTASSIUM 3.1 MMOL/L (3.5-5.1); SODIUM 142 MMOL/L (136-145)
[2017-08-15 16:38] LABS: ALANINE AMINOTRANSFERASE 28 U/L (12-78); ALBUMIN 3.6 G/DL (3.4-5.0); ALKALINE PHOSPHATASE 88 U/L (46-116); ASPARTATE AMINO TRANSFERASE 18 U/L (15-37); BILIRUBIN,TOTAL 0.4 MG/DL (0.2-1.0)
[2017-08-15] MEDS ORDERED: CIPROFLOXACIN500 M2 ORAL (17:18)
[2017-08-15] MEDS ORDERED: METRONIDAZOLE500 MG ORAL (17:18)
[2017-08-15] MEDS ORDERED: DICYCLOMINE HCL10 MG PO (17:18)
[2017-08-15 17:19] VITALS: BP 123/81
[2017-08-15 17:25] VITALS: BP 123/81
== END 2017-08-15 17:25 | disposition home or self-care (01) ==
LOC: EMR 17:02
DX: K52.9 Noninfective gastroenteritis and colitis, unspecified (principal); I10 Essential (primary) hypertension; Z85.810 Personal history of malignant neoplasm of tongue
CPT/HCPCS: 36415; 80053; 81003; 83690; 84484; 85025; 96374; 99283; J2405

== ENCOUNTER 2017-10-13 21:15 | Emergency (ER) | payer OTHER ==
[~2017-10-13] VITALS: Ht 160 cm; Wt 74.8 kg
[~2017-10-13 21:15] MED LIST changes: +DICYCLOMINE HCL10 MG PO; +METRONIDAZOLE500 MG ORAL
[2017-10-13 21:45] VITALS: BP 110/65
--- NOTE | 2017-10-13 22:36 | Emergency Room Report ---
History of Present Illness General Chief Complaint: Abdominal Pain Source: Patient, EMS Present Illness HPI Is a 57-year-old female with a history of high blood pressure. She presents with complaint of dizziness after taking her blood pressure medication. She also complained of headache has been ongoing for last to 3 weeks. She said everyone in her building's having some type of cancer mostly brain cancer. She is worried about this. She also has a chronic pelvic pain secondary to fibroid. She scheduled to see a specialist. Right now she dizziness resolved. Denies any fever chills but denies any nausea vomiting. No diarrhea. Headache better with Aleve. Allergies: Coded Allergies: IBUPROFEN (Verified Allergy, Mild, Stomach pain, 10/13/17) NO KNOWN ALLERGIES (Unverified Allergy, Unknown, 08/02/14) Patient History Past Medical History: see triage record, old chart reviewed Past Surgical History: none Pertinent Family History: none Social History: Denies: smoking Now: No Immunizations: other Reviewed Nursing Documentation: PMH: Agreed; PSxH: Agreed Nursing Documentation-PMH Past Medical History: No History, Except For Hx Hypertension: Yes Hx Cancer: Yes - tongue Hx Gastrointestinal Problems: No - hysterectomy Review of Systems Eye: Denies: eye pain, blurred vision ENT: Denies: ear pain, nose congestion, throat swelling Respiratory: Denies: cough, shortness of breath Cardiovascular: Denies: chest pain, palpitations Gastrointestinal: Reports: abdominal pain; Denies: diarrhea, nausea, vomiting Musculoskeletal: Denies: back pain, joint pain Skin: Denies: rash Neurological: Reports: headache; Denies: numbness Endocrine: Denies: increased thirst, increased urine Hematologic/Lymphatic: Denies: easy bruising All Other Systems: negative except mentioned in HPI Physical Exam Vital Signs Date Time Temp Pulse Resp B/P (MAP) Pulse Ox O2 Delivery O2 Flow Rate FiO2 10/13/17 21:08 98.1 71 18 99/63 98 Room Air 98.1 vitals unremarkable Sp02 EP Interpretation: reviewed, normal General Appearance: well appearing, no apparent distress, alert Head: normocephalic, atraumatic Eyes: bilateral eye PERRL, bilateral eye EOMI ENT: hearing grossly normal, normal pharynx Neck: full range of motion, supple, no meningismus Respiratory: chest non-tender, lungs clear, normal breath sounds Cardiovascular #1: regular rate, rhythm, no murmur Gastrointestinal: normal bowel sounds, non tender, no mass, no organomegaly, no bruit, non-distended Musculoskeletal: back normal, gait/station normal, normal range of motion Psychiatric: mood/affect normal Skin: warm/dry Medical Decision Making Diagnostic Impression: Primary Impression: Headache Qualified Codes: R51 - Headache Additional Impression: Dizziness ER Course Patient presents with headache has been ongoing for 2-[address] scan unremarkable. No evidence of TIA or CVA. No evidence of neoplastic process or bleed. We'll discharge home. Her blood pressure is on the low end of normal. She is on lisinopril Hydrocort thiazide combination. We'll stop that. Told patient to get a blood pressure cuff to measure blood pressure. We'll switch to just hydrochlorothiazide. No evidence of endorgan damage. CT/MRI/US Diagnostic Results CT/MRI/US Diagnostic Results : Imaging Test Ordered: CT head Impression negative per radiologist Last Vital Signs Date Time Temp Pulse Resp B/P (MAP) Pulse Ox O2 Delivery O2 Flow Rate FiO2 10/13/17 21:08 98.1 71 18 99/63 98 Room Air 98.1 Status: improved Disposition: HOME, SELF-CARE Condition: Stable Scripts Hydrochlorothiazide* (HYDROCHLOROTHIAZIDE*) 25 Mg Tablet 25 MG ORAL DAILY, #30 TAB Prov: SLICK JOSEPH M.D. 10/13/17 Amitriptyline HCl (ELAVIL*) 25 Mg Tablet 25 MG ORAL BEDTIME, #30 TAB Prov: SLICK JOSEPH M.D. 10/13/17 Additional Instructions: Stop your blood pressure medication. A drop in your blood pressure too much. Get a blood pressure machine to check your blood pressure. Follow-up with your doctor in 7 days. Return if symptom worsen. SLICK JOSEPH M.D. Oct 13, 2017 22:36
[2017-10-13 23:07] LABS: APPEARANCE,URINE SLIGHTLY CLOUDY; BILIRUBIN, URINE NEGATIVE (NEGATIVE); COLOR,URINE PALE YELLOW; GLUCOSE, URINE (UA) NEGATIVE (NEGATIVE); KETONES,URINE NEGATIVE (NEGATIVE); LEUKOCYTE ESTERASE ,URINE 1+ (NEGATIVE); NITRITE,URINE NEGATIVE (NEGATIVE); PH,URINE 5 (4.5-8.0); PROTEIN,URINE 2+ (NEGATIVE); UROBILINOGEN,URINE NORMAL MG/DL (0.0-1.0)
[2017-10-13] MEDS: Acetaminophen 500mg (ES) tab ORAL ONE ×2 (23:13→23:16)
[2017-10-13] MEDS ORDERED: AMITRIPTYLINE25 MG ORAL (23:14)
[2017-10-13] MEDS ORDERED: HYDROCHLOROTHIA25 MG ORAL (23:14)
--- NOTE | 2017-10-13 23:15 | Diagnostic Imaging Report ---
EXAM: CT Head Without Intravenous Contrast CLINICAL HISTORY: DIZZY TECHNIQUE: Axial computed tomography images of the head/brain without intravenous contrast. CTDI is 70.38 mGy and DLP is 1467.35 mGy-cm. One or more of the following dose reduction techniques were used: automated exposure control, adjustment of the mA and/or kV according to patient size, use of iterative reconstruction technique. COMPARISON: No relevant prior studies available. FINDINGS: Brain: No hemorrhage. No mass effect. Mendoza white junction preserved. Ventricles: Age appropriate Sinuses: Well aerated as visualized. Mastoid air cells: Well aerated as visualized. IMPRESSION: No acute intracranial findings
[2017-10-13 23:35] VITALS: BP 110/65
== END 2017-10-13 23:35 | disposition home or self-care (01) ==
LOC: EDBD 21:15 → EMR 22:51
DX: R51 Headache (principal); R42 Dizziness and giddiness; I10 Essential (primary) hypertension; Z85.810 Personal history of malignant neoplasm of tongue
CPT/HCPCS: 70450; 81003; 99284

== ENCOUNTER 2017-12-17 09:59 | Emergency (ER) | payer OTHER ==
[~2017-12-17] VITALS: Ht 160 cm; Wt 75.7 kg
[~2017-12-17 09:59] MED LIST changes: +AMITRIPTYLINE25 MG ORAL; +HYDROCHLOROTHIA25 MG ORAL
--- NOTE | 2017-12-17 10:41 | Emergency Room Report ---
History of Present Illness General Chief Complaint: Lower Extremity Injury Source: Patient Present Illness HPI Patient presents with complaints of pain to the right middle toe Reports that cup of ice fell onto her right foot This was last Sunday Patient reports that she has had discomfort to that area since then pain is worse with movement Denies any ankle pain denies any knee pain Denies any cuts or lacerations Allergies: Coded Allergies: NO KNOWN ALLERGIES (Unverified Allergy, Unknown, 08/02/14) Patient History Past Medical History: see triage record Pertinent Family History: none Last Menstrual Period: NA Now: No Reviewed Nursing Documentation: PMH: Agreed; PSxH: Agreed Nursing Documentation-PMH Past Medical History: No History, Except For Hx Hypertension: Yes Hx Cancer: Yes - tongue Hx Gastrointestinal Problems: No - hysterectomy Review of Systems All Other Systems: negative except mentioned in HPI Physical Exam Vital Signs Date Time Temp Pulse Resp B/P (MAP) Pulse Ox O2 Delivery O2 Flow Rate FiO2 12/17/17 10:26 97.5 81 18 118/74 98 Room Air Sp02 EP Interpretation: reviewed, normal General Appearance: well appearing, no apparent distress Head: normocephalic, atraumatic Eyes: bilateral eye PERRL, bilateral eye EOMI ENT: hearing grossly normal Musculoskeletal: other - Tender on palpation of the right middle toe, I cannot appreciate any obvious ecchymosis or swelling however patient felt that the toe was mildly more swollen than others, Neurologic: alert, oriented x3, responsive Skin: normal color, no rash, warm/dry Lymphatic: no adenopathy Procedures Splinting Progress post op shoe With improvement in discomfort, decreased pressure patient remains neurovascularly intact Medical Decision Making Diagnostic Impression: Primary Impression: Toe fracture ER Course Given the patient's discomfort and presentation x-ray imaging was obtained Pain medication was ordered X-ray that show acute fracture of the third proximal phalange Patient was provided with a post op shoe this fracture is 7 days old at this time will require further outpatient primary physician follow-up Please note CURES system was evaluated, patient does have several opiate medications by different prescribers, given the acute fracture, she was provided with 9 Tylenol 3's however it was discussed regarding the safety and pain medication prescribing campaign [facility] the need for close primary physician follow-up. Other X-Ray Diagnostic Results Other X-Ray Diagnostic Results : X-Ray ordered: right foot # of Views/Limited Vs Complete: 3 View Indication: Pain EP Interpretation: Yes Interpretation: no dislocation, no soft tissue swelling, other - Acute fracture proximal third phalange Impression: Other - Acute fracture Electronically Signed by: Chaparro Strickland DO Last Vital Signs Date Time Temp Pulse Resp B/P (MAP) Pulse Ox O2 Delivery O2 Flow Rate FiO2 12/17/17 10:26 97.5 81 18 118/74 98 Room Air Status: improved Disposition: HOME, SELF-CARE Condition: Improved Scripts Acetaminophen With Codeine (T#3) (TYLENOL #3 TAB*) Y Tab 1 TAB ORAL Q8H PRN for For Pain, #9 TAB Prov: Chaparro Strickland DO 12/17/17 Referrals: NOT CHOSEN IPA/MD,REFERRING (PCP) Additional Instructions: Patient is provided with the discharge instructions notified to follow up with primary doctor in the next 2-3 days otherwise return to the er with any worsening symptoms. Please note that this report is being documented using [employer] technology. This can lead to erroneous entry secondary to incorrect interpretation by the dictating instrument. Chaparro Strickland DO Dec 17, 2017 10:41
[2017-12-17] MEDS ORDERED: Tylenol #3 tab (300mg/30mg) ORAL ONE (11:15)
[2017-12-17] MEDS ORDERED: ACETAMINOPHEN-1 EAC1 ORAL (11:16)
[2017-12-17 11:29] VITALS: BP 118/74
--- NOTE | 2017-12-17 12:12 | Diagnostic Imaging Report ---
Indication: Foot Pain Comparison: None Findings: 3 views of the right foot were obtained. There is acute fracture involving the base of the third proximal phalange. Fracture appears nondisplaced. IMPRESSION: Acute fracture base of the third proximal phalange
== END 2017-12-17 11:30 | disposition home or self-care (01) ==
LOC: EMR 10:21
DX: S92.521A Displaced fracture of middle phalanx of right lesser toe(s), initial encounter for closed fracture (principal); W18.09XA Striking against other object with subsequent fall, initial encounter; M79.674 Pain in right toe(s); I10 Essential (primary) hypertension; Z85.810 Personal history of malignant neoplasm of tongue
CPT/HCPCS: 29515; 99283